=== PATIENT | female | born 1935 | race Caucasian/White ===

== ENCOUNTER → 2018-08-07 | Outpatient (CLI) | payer MEDICARE, BC ==
--- NOTE | 2018-08-07 12:01 | KCIC ---
Bone mineral density exam History: Estrogen deficiency, height loss, adult fracture, takes calcium supplement and Fosamax, loss of height Comparison: None Findings: Bone mineral density examination utilizing DEXA was performed. Left hip bone mineral density of 0.679 g/cm2 corresponds with a T score -2.2, Z score 0.0. The bone mineral density of the lumbar spine was 0.907 g/cm2 which corresponds with a T-score of -1.3, Z score 1.5. By World Congress on Osteoporosis criteria, a T score of 0 to-1 SD is considered to be within normal limits. A T score of -1 to -2.5 SD is considered osteopenia. A T score less than -2.5 SD is considered osteoporosis Impression: 1. There is osteopenia of the left hip and lumbar spine. Electronically signed by: Sandor Polo MD (08/07/2018 11:59 AM) [id number]
--- NOTE | 2018-08-16 13:20 | KCIC ---
BILATERAL SCREENING MAMMOGRAM History: Routine screening. Comparison: Bilateral mammogram July 03, 2017 and dating back to 2015, [place], [place]. Technique: Routine bilateral digital mammogram views were obtained. Findings: Breast Tissue Density B : There are scattered areas of fibroglandular density retroareolar. The remainder of the breasts are almost completely fatty. A few benign calcifications are redemonstrated bilaterally. Tiny nodular asymmetry in the upper-outer right breast at posterior depth is stable. There are no dominant masses, suspicious microcalcifications, or architectural distortion. IMPRESSION: No mammographic evidence of malignancy. Recommend routine screening. BI-RADS category 2: Benign findings. The images were reviewed with computer aided detection. Patient information is entered into the reminder system with a target due date for the next screening mammogram. Mammography is the most sensitive method for finding small breast cancers, but it does not detect them all and is not a substitute for careful clinical examination. A negative mammogram does not negate a clinically suspicious finding and should not result in delay in biopsying a clinically suspicious abnormality. "Our facility is accredited by the [employer] Mammography Program." Electronically signed by: George Kellogg MD (08/16/2018 1:17 PM) [id number]
== END | disposition home or self-care (01) ==
LOC: KCIC MAMMO 10:40
PROVIDERS: ATTEND Internal Medicine
DX: Z12.31 Encounter for screening mammogram for malignant neoplasm of breast (principal); N64.89 Other specified disorders of breast; E28.39 Other primary ovarian failure; M85.88 Other specified disorders of bone density and structure, other site
CPT/HCPCS: 77067; 77080

== ENCOUNTER → 2019-02-25 | Outpatient (CLI) | payer MEDICARE, BC ==
--- NOTE | 2019-02-26 12:20 | KCIC ---
Bilateral carotid artery duplex ultrasound study without comparison for transient visual loss in the right eye. TECHNIQUE: Real-time grayscale and color spectral Doppler evaluation of the carotid and vertebral arteries is performed. There is minimal atherosclerosis in the right common carotid artery, with a peak systolic velocity 106 cm/s. There is hypoechoic plaque within the proximal right internal carotid artery, with a peak systolic velocity 121 cm/s, constituting a ratio of 1.1. Peak end-diastolic velocity of the right internal carotid artery is 29 cm/s. In the left common carotid artery there is minimal atherosclerosis, with a peak systolic velocity 103 cm/s. In the left internal carotid artery, there is mild mixed atherosclerotic plaque with a peak systolic velocity 121 cm/s, constituting a ratio 1.2. Peak end-diastolic velocity of the left internal carotid artery is 28 cm/s. There is antegrade flow within both vertebral arteries. IMPRESSION: 1. Bilateral internal carotid artery atherosclerosis with less than 50 percent stenosis in each side. Stenosis calculations for CT, MR and conventional angiography are based upon measurement of the distal ICA diameter in accordance with the NASCET methodology. Stenosis calculations for carotid ultrasound studies are derived from validated velocity criteria which are known to correlate with the NASCET methodology. Electronically signed by: Sky Baron MD (02/26/2019 12:17 PM) [id number]
== END | disposition home or self-care (01) ==
LOC: KCIC US 11:37
PROVIDERS: ATTEND Internal Medicine
DX: I65.23 Occlusion and stenosis of bilateral carotid arteries (principal); H54.61 Unqualified visual loss, right eye, normal vision left eye
CPT/HCPCS: 93880